=== PATIENT | female | born 1980 | race Caucasian/White ===

== ENCOUNTER 2021-08-30 08:53 | Emergency (ER) | payer OTHER ==
[~2021-08-30] VITALS: Ht 160 cm; Wt 48.1 kg
--- NOTE | 2021-08-30 09:04 | NUR ---
TO ER BED 8, R SIDED CHEST PRESSURE INTERMITENT X 5 DAYS. DIFFICULT TO TAKE DEEP BREATH TODAY, RECENTLY HAD A SURGERY (MOMMY MAKE OVER), AAOX3, BREATHING EVEN AND NON LABORED, CONNECTED TO MONITOR, AWAITING MD LICONA
--- NOTE | 2021-08-30 10:02 | NUR ---
URINE COLLECTED AND SENT TO LAB
[2021-08-30 10:03] LABS: CARBON DIOXIDE 29 mmol/L (21-32); CHLORIDE 100 mmol/L (98-107); CREATININE 0.7 mg/dL (0.6-1.3); GLUCOSE 82 mg/dL (74-106); POTASSIUM 4.2 mmol/L (3.5-5.1); SODIUM SERUM 135 mmol/L (136-145); UREA NITROGEN, BLOOD 9 mg/dL (7-18)
[2021-08-30 10:07] LABS: BASOPHILS % (AUTO) 0.3 % (0.0-2.0); EOSINOPHILS % (AUTO) 0.5 % (0.0-6.0); HEMATOCRIT 33 % (33-45); HEMOGLOBIN 10.9 g/dL (11.5-14.8); LYMPHOCYTES # (AUTO) 0.8 K/uL (0.8-4.8); LYMPHOCYTES % (AUTO) 15.3 % (20.0-44.0); MEAN CORPUSCULAR HGB CONC 33 g/dl (31.0-36.0); MEAN CORPUSCULAR VOLUME 91 fL (82-100); MONOCYTES # (AUTO) 0.4 K/uL (0.1-1.30); MONOCYTES % (AUTO) 8.4 % (2.0-12.0); NEUTROPHILS # (AUTO) 3.8 K/uL (1.8-8.9); NEUTROPHILS % (AUTO) 75.5 % (43.0-81.0); PLATELET COUNT (AUTO) 354 K/uL (150-450); WHITE BLOOD COUNT (AUTO) 5.1 K/uL (4.3-11.0)
--- NOTE | 2021-08-30 10:55 | NUR ---
TAKEN TO CT
[2021-08-30] MEDS ORDERED: IV NS 0.9% 250 ML IV ONE (10:58)
[2021-08-30] MEDS ORDERED: IOHEXOL-350 100 ML VIAL IV ONE (10:58)
[2021-08-30] MEDS ORDERED: CT SWABBABLE VALVE TRANS SET 1 EA INFUS.SET MC ONE (10:58)
--- NOTE | 2021-08-30 11:00 | NUR ---
PT BIB SELF @ 0903 R SIDED CHEST PRESSURE INTERMITENT X 5 DAYS. DIFFICULTY TAKING DEEP BREATHS TODAY. PT TOLERATING R/A AT 100%
--- NOTE | 2021-08-30 12:07 | NUR ---
Patient discharged to home in stable condition. Written and verbal after care instructions given. Patient verbalizes understanding of instruction. IV removed. Catheter intact and site benign. Pressure and 4x4 applied to site. No bleeding noted. PT ambulatory with a steady gait.
[2021-08-30 12:08] VITALS: BP 121/82
== END 2021-08-30 12:09 | disposition home or self-care (01) ==
LOC: ER 08:56
DX: R07.89 Other chest pain (principal); R06.00 Dyspnea, unspecified; Z98.890 Other specified postprocedural states
CPT/HCPCS: 36415; 71045; 71275; 80048; 84484; 84703; 85025; 85378; 93005; 99285; J7050; Q9967